=== PATIENT | female | born 1960 | race Caucasian/White ===

== ENCOUNTER 2019-03-21 01:51 | Observation (INO) | payer BC, SELFPAY ==
[2019-03-21] VITALS (7 sets, daily range): BP systolic 103–150; BP diastolic 58–90; PULSE 62–85; RESP 15–20; TEMP 36.7–37; O2SAT 95–98; BMI 25.4; BMI 25.7
--- NOTE | 2019-03-21 02:14 | CT_ITS ---
CT abdomen pelvis w con CLINICAL INDICATION: Right lower quadrant pain with nausea ITS.REASON: RLQ pain ORDERING PHYSICIAN: Baldomero Hunt MD PATIENT AGE: 58 years COMPARISON: None TECHNIQUE: Axial images obtained with sagittal and coronal reformats. All CT scans at the facility use one or more dose reduction, viz: automated exposure control, ma/kV adjustment per patient size (including targeted exams where dose is matched to indication, i.e. head), or iterative reconstruction technique. PROCEDURE: Oral Contrast: 75 mL's Optiray 350 IV Contrast: None . FINDINGS: Lower thorax: No acute finding Small area of decreased attenuation is present in the left hepatic lobe at the falciform ligament region and may be due to focal fatty infiltration measuring 2.6 cm. The spleen, adrenal glands, gallbladder, pancreas, and kidneys have an unremarkable appearance. Densely calcified lymph node is present in the right periaortic region in the upper abdomen. There are dilated thickened small bowel loops involving the ileum and distal jejunum. Small bowel loops measure up to 3 cm in width with mucosal thickening. The bowel loops somewhat changing caliber with less distention in the lower pelvic region in the mid to distal ileum. There remains some mild thickening distention of the ileum however to the ileocecal junction with small bowel feces sign within the distal segments of the ileum . The appendix is also slightly distended and fluid-filled measuring up to 8 mm in diameter. No periappendiceal stranding of the fat is evident. There is a small amount of generalized ascites. No pneumatosis or portal venous gas. There is mild thickening of the colon as well. No acute bony anomalies. IMPRESSION: 1. Diffuse small bowel dilatation as described above with mucosal thickening. The mid and distal ileum is not as distended as the proximal ileum and distal jejunum but there is small bowel wall thickening and small bowel feces sign in the distal ileum. A definite transition point is not identified although the small bowel does slightly change in caliber distally. A partial small bowel obstruction is considered. Diffuse enteritis is also a consideration. There is a small amount of ascites. No free air or portal venous gas. There is also some mild mucosal thickening of the colon which could indicate colitis. 2. Mildly distended fluid-filled appendix. This is of questioned clinical significance and follow-up is suggested.
[2019-03-21 02:27] LABS: Microscopic, Urine URINE MICROSCOPIC (MICROSCOPIC)
[2019-03-21 02:29] LABS: Basophils % 0.2 % (0.1-2.0); Eosinophils # 0.1 K/mm3 (0.0-0.4); Eosinophils % 0.8 % (0.1-12.0); Hematocrit 46.9 % (37.0-47.0); Lymphocytes # 1.4 K/mm3 (0.7-4.5); Lymphocytes % 18.3 % (10-50); Mean Corpuscular HGB Conc 34.1 g/dL (31.8-35.4); Mean Corpuscular Hemoglobin 29.5 pg (27.0-31.2); Mean Corpuscular Volume 86.6 fl (81-99); Mean Platelet Volume 7.1 fl (7.4-10.4); Monocytes # 0.6 K/mm3 (0.1-1.0); Monocytes % 7.5 % (1.7-9.3); Neutrophils # 5.7 K/mm3 (1.8-7.8); Neutrophils % 73.1 % (37.0-80.0); Platelet Count 239 K/mm3 (142-424); Red Blood Count 5.41 M/mm3 (4.20-5.40); Red Cell Distribution Width 12.7 % (11.5-17.5); White Blood Count 7.8 K/mm3 (4.8-10.8)
[2019-03-21 02:38] LABS: Alanine Aminotransferase 25 U/L (12-78); Albumin Level 3.8 gm/dL (3.4-5.0); Albumin/Globulin Ratio 1.1 (1.1-1.8); Alkaline Phosphatase 71 U/L (46-116); Amylase 72 U/L (25-115); Anion Gap 12.7 mEq/L (5-15); Aspartate Amino Transferase 14 U/L (15-37); Bilirubin,Total 0.5 mg/dL (0.2-1.0); Blood Urea Nitrogen 8 mg/dL (7-18); C-Reactive Protein 0.2 mg/L (0.0-0.9); Calcium 9.1 mg/dL (8.5-10.1); Carbon Dioxide 27 mmol/L (21.0-32.0); Chloride 102 mmol/L (98-107); Creatinine Clearance Estimated 78 mL/min (50-200); Creatinine,Serum 0.81 mg/dL (0.55-1.02); Estimated Glomerular Filt Rate 73 ml/min (>60); GFR (African American) 88 ML/MIN (>60); Globulin 3.4 gm/dl (1.3-3.2); Glucose 120 mg/dL (74-106); Lipase 189 u/L (73-393); Potassium 3.7 mmoL/L (3.5-5.1); Sodium 138 mmol/L (136-145); Total Protein,Serum 7.2 gm/dL (6.4-8.2)
[2019-03-21 02:45] LABS: Appearance,Urine CLEAR (Clear); Bilirubin,Urine Negative (Negative); Blood, Urine Negative (Negative); Color,Urine YELLOW (Yellow); Glucose,Urine (UA) Negative (Negative); Ketones,Urine Negative (Negative); Leukocyte Esterase,Urine 1+ (Negative); Nitrate,Urine Negative (Negative); PH,Urine 6.5 (5.0-8.5); Protein,Urine Negative (Negative); Urobilinogen,Urine 0.2 EU/dl (0.2)
[2019-03-21 03:00] LABS: Erythrocyte Sedimentation Rate 1 mm/hr (0-30)
[2019-03-21 03:02] LABS: Bacteria,Urine Trace /lpf
--- NOTE | 2019-03-21 04:12 | HMH.EDNVD ---
ED Disposition Clinical Impression: Small bowel obstruction Disposition: Admitted As Inpatient Condition on Discharge: Fair Instructions: DI for Acute Abdomen Referrals: Dilan Castillo [Primary Care Provider] - - Critical Care Critical Care Time: No Attestation: On 03/21/19, the high probability of a clinically significant, sudden or life threatening deterioration of the following system(s) required my full and direct attention, intervention and personal management. The time I documented below is in addition to time spent performing reported procedures but includes the following listed in this critical care notation. Medical Decision Making - Medical Records Medical records reviewed: Yes: I reviewed the patient's medical records. - Todd Inquiry Pt receiving controlled substance: No Vital Signs: 03/21/19 02:08 Temperature 98.0 F Temperature Source Oral Pulse Rate [Left] 85 Respiratory Rate 16 Blood Pressure [Left Arm] 150/90 H Blood Pressure Mean [Left Arm] 110 Blood Pressure Source [Left Arm] Automatic Cuff Blood Pressure Position [Left Arm] Supine 02 Sat by Pulse Oximetry 95 Oxygen Delivery Method Room Air - Lab Data Lab results reviewed: Yes: I reviewed the patient's lab results. Lab Results 03/21/19 02:07: Urine Color Yellow, Urine Appearance Clear, Urine pH 6.5, Ur Specific [place] 1.010, Urine Protein Negative, Urine Glucose (UA) Negative, Urine Ketones Negative, Urine Blood Negative, Urine Nitrate Negative, Urine Bilirubin Negative, Urine Urobilinogen 0.2, Ur Leukocyte Esterase 1+ A, Urine WBC 5-10, Ur Squamous Epith Cells 3-5, Urine Bacteria Trace 03/21/19 02:07: WBC 7.8, RBC 5.41 H, Hgb 16.0, Hct 46.9, MCV 86.6, MCH 29.5, MCHC 34.1, RDW 12.7, Plt Count 239, MPV 7.1 L, Neut % (Auto) 73.1, Lymph % (Auto) 18.3, [place] % (Auto) 7.5, Eos % (Auto) 0.8, Baso % (Auto) 0.2, Neut # (Auto) 5.7, Lymph # (Auto) 1.4, [place] # (Auto) 0.6, Eos # (Auto) 0.1, Baso # (Auto) 0.0, ESR 1 03/21/19 02:07: Sodium 138, Potassium 3.7, Chloride 102, Carbon Dioxide 27, Anion Gap 12.7, BUN 8, Creatinine 0.81, Estimated Creat Clear 78, Estimated GFR 73, Est GFR ( Amer) 88, Glucose 120 H, Calcium 9.1, Total Bilirubin 0.5, AST 14 L, ALT 25, Alkaline Phosphatase 71, C-Reactive Protein 0.2, Total Protein 7.2, Albumin 3.8, Globulin 3.4 H, Albumin/Globulin Ratio 1.1, Amylase 72, Lipase 189 Result diagrams: 03/21/19 02:07 03/21/19 02:07 Orders (Tests/Meds): ED MEDICATIONS Generic Name Dose Route Start Last Admin Trade Name Freq PRN Reason Stop Dose Admin Sodium Chloride 1,000 mls @ 999 mls/hr 03/21/19 02:30 03/21/19 02:19 Sod Chlor 0.9% 1000ml Bag IV 03/21/19 03:30 999 mls/hr .Q1H1M LAURYN Administration Discontinued Medications Generic Name Dose Route Start Last Admin Trade Name Freq PRN Reason Stop Dose Admin Ioversol 75 ml 03/21/19 04:07 03/21/19 04:08 Rad-Optiray 350 100ml Vial IV 03/21/19 04:08 75 ml ONCE ONE Administration Protocol Ketorolac Tromethamine 30 mg 03/21/19 02:16 03/21/19 02:19 Toradol 30mg/Ml Vial IV 03/21/19 02:17 30 mg ONCE ONE Administration Ondansetron HCl 4 mg 03/21/19 02:16 03/21/19 02:19 Zofran 4mg/2ml Vial IV 03/21/19 02:17 4 mg ONCE ONE Administration Sodium Chloride 10 ml 03/21/19 04:07 03/21/19 04:08 Rad-Saline Flush 10ml Syringe IV 03/21/19 04:08 10 ml ONCE ONE Administration ORDERS Category Date Time Status CT abdomen pelvis w con Stat Cat Scan 03/21/19 02:14 Taken Urine Culture Stat Micro 03/21/19 02:07 Received - CT Data CT Scan: Abdomen, Pelvis Time Received: 04:[address] Reviewed: Yes: I have viewed the radiologist's interpretation Preliminary Findings: Abnormal ( ) Nausea/Vomiting/Diarrhea HPI - General Chief complaint: Abdominal Pain Stated complaint: Pain in middle of stomach into back, nausea Time Seen by Provider: 03/21/19 02:15 Mode of Arrival: Ambulatory Source of Information: Patient
--- NOTE | 2019-03-21 04:16 | ED_ITS ---
ED Disposition Clinical Impression: Small bowel obstruction Disposition: Admitted As Inpatient Condition on Discharge: Fair Instructions: DI for Acute Abdomen Referrals: Dilan Castillo [Primary Care Provider] - - Critical Care Critical Care Time: No Attestation: On 03/21/19, the high probability of a clinically significant, sudden or life threatening deterioration of the following system(s) required my full and direct attention, intervention and personal management. The time I documented below is in addition to time spent performing reported procedures but includes the fo brigetteg listed in this critical care notation. Medical Decision Making - Medical Records Medical records reviewed: Yes: I reviewed the patient's medical records. - Todd Inquiry Pt receiving controlled substance: No Vital Signs: 03/21/19 02:08 Temperature 98.0 F Temperature Source Oral Pulse Rate [Left] 85 Respiratory Rate 16 Blood Pressure [Left Arm] 150/90 H Blood Pressure Mean [Left Arm] 110 Blood Pressure Source [Left Arm] Automatic Cuff Blood Pressure Position [Left Arm] Supine 02 Sat by Pulse Oximetry 95 Oxygen Delivery Method Room Air - Lab Data Lab results reviewed: Yes: I reviewed the patient's lab results. Lab Results 03/21/19 02:07: Urine Color Yellow, Urine Appearance Clear, Urine pH 6.5, Ur Specific [place] 1.010, Urine Protein Negative, Urine Glucose (UA) Negative, Urine Ketones Negative, Urine Blood Negative, Urine Nitrate Negative, Urine Bi lirubin Negative, Urine Urobilinogen 0.2, Ur Leukocyte Esterase 1+ A, Urine WBC 5-10, Ur Squamous Epith Cells 3-5, Urine Bacteria Trace 03/21/19 02:07: WBC 7.8, RBC 5.41 H, Hgb 16.0, Hct 46.9, MCV 86.6, MCH 29.5, MCHC 34.1, RDW 12.7, Plt Count 239, MPV 7.1 L, Neut % (Auto) 73.1, Lymph % (Auto) 18.3, [place] % (Auto) 7.5, Eos % (Auto) 0.8, Baso % (Auto) 0.2, Neut # (Auto) 5.7, Lymph # (Auto) 1.4, [place] # (Auto) 0.6, Eos # (Auto) 0.1, Baso # (Auto) 0.0, ESR 1 03/21/19 02:07: Sodium 138, Potassium 3.7, Chloride 102, Carbon Dioxide 27, Anion Gap 12.7, BUN 8, Creatinine 0.81, Estimated Creat Clear 78, Estimated GFR 73, Est GFR ( Amer) 88, Glucose 120 H, Calcium 9.1, Total Bilirubin 0.5, AST 14 L, ALT 25, Alkaline Phosphatase 71, C-Reactive Protein 0.2, Total Protein 7.2, Albumin 3.8, Globulin 3.4 H, Albumin/Globulin Ratio 1.1, Amylase 72, Lipase 189 Result diagrams: 03/21/19 02:07 03/21/19 02:07 Orders (Tests/Meds): ED MEDICATIONS Generic Name Dose Route Start Last Admin Trade Name Freq PRN Reason Stop Dose Admin Sodium Chloride 1,000 mls @ 999 mls/hr 03/21/19 02:30 03/21/19 02:19 Sod Chlor 0.9% 1000ml Bag IV 03/21/19 03:30 999 mls/hr .Q1H1M LAURYN Administration Discontinued Medications Generic Name Dose Route Start Last Admin Trade Name Freq PRN Reason Stop Dose Admin Ioversol 75 ml 03/21/19 04:07 03/21/19 04:08 Rad-Optiray 350 100ml Vial IV 03/21/19 04:08 75 ml ONCE ONE Administration Protocol Ketorolac Tromethamine 30 mg 03/21/19 02:16 03/21/19 02:19 Toradol 30mg/Ml Vial IV 03/21/19 02:17 30 mg ONCE ONE Administration Ondansetron HCl 4 mg 03/21/19 02:16 03/21/19 02:19 Z
--- NOTE | 2019-03-21 05:33 | PC.NURSE ---
LATE ENTRY; @ 0510 ARRIVED TO FLOOR, PER W/C/ FROM ED
--- NOTE | 2019-03-21 06:26 | PC.NURSE ---
DR HENLEY ARRIVED TO FLOOR. NOTIFIED OF CONSULT.
--- NOTE | 2019-03-21 06:38 | HMH.GSCON ---
*Admission Date: 03/21/19 *Chief complaint: Abdominal pain/nausea/vomiting *History of present illness: This is a 58-year-old female seen in consultation from Dr. Hunt after presenting overnight to the emergency department with increasing abdominal pain and nausea. No emesis. No melena. Evaluation in the emergency department included a CT scan that revealed changes consistent with possible enteritis versus partial small bowel obstruction. Surgical service was consulted for further evaluation. She states that she feels quite a bit better right now . Her last bowel movement was yesterday. She states that she passed flatus late yesterday . Please see HPI from emergency department evaluation forwarded below. - General Chief complaint: Abdominal Pain Stated complaint: Pain in middle of stomach into back, nausea Time Seen by Provider: 03/21/19 02:15 Mode of Arrival: Ambulatory Source of Information: Patient, Relative, Medical Record Limitations: No Limitations Description of Symptoms (Recalled from ER Triage Doc. by RN): Pt c/o RLQ abd pain w/ nausea - History of Present Illness HPI Narrative: upper abd pain which started tonight with nausea MD complaint: nausea, vomiting, abdominal pain Onset (ago): day(s) Associated Abdominal Pain: Yes Location of pain: periumbilical Severity: moderate Associated symptoms: denies other symptoms Review of Systems - Constitutional Denies body ache(s) - Eyes Denies change in vision - ENT Denies difficulty swallowing - *Cardiovascular Denies chest pain - *Respiratory Denies cough - *Gastrointestinal Reports abdominal pain, Reports nausea, Denies vomiting - *Genitourinary Denies abnormal vaginal bleeding - *Musculoskeletal Denies muscle weakness - Integumentary/Breasts Denies change in hair - *Neurologic Denies abnormal movements, Denies seizure-like activity - Psychiatric Denies anxiety - Endocrine Denies cold intolerance - Hematologic/Lymphatic Denies easy bleeding - Allergic/Immunologic Denies GI upset with certain foods [facility] History Medical History: Denies:: Cancer, Diabetes Mellitus Type 1, Diabetes Mellitus Type 2, MRSA *Have you ever received a pneumonia vaccine?: No *Have you received a flu vaccine this season?: No Other Surgeries: Yes: , Other (Tonsillectomy.) Amputation: No Fractures: No - *Social History Educational Level: Completed College Alcohol Intake: never *Occupational Status:: employed *Travel in the last 8 weeks: None - Psychiatric History Expresses thoughts of harming self/others: None Suicide Plan Description: No Plan Family Hx:: Anemia, Cancer, Coronary Artery Disease, Diabetes, Heart Attack, Hypertension, Stroke Meds Home Medications Medication Instructions Recorded Confirmed Type No Known Home Medications 03/21/19 03/21/19 History Allergies Allergy/AdvReac Type Severity Reaction Status Date / Time NO KNOWN ALLERGIES Allergy Uncoded 10/09/17 15:07 Exam Vital signs and Labs for Last 24 Hours: Temp Pulse Resp BP Pulse Ox 98.2 F 74 17 121/78 97 03/21/19 05:10 03/21/19 05:10 03/21/19 05:10 03/21/19 05:10 03/21/19 05:10 Laboratory Results - last 24 hr 03/21/19 02:07: Urine Color Yellow, Urine Appearance Clear, Urine pH 6.5, Ur Specific [place] 1.010, Urine Protein Negative, Urine Glucose (UA) Negative, Urine Ketones Negative, Urine Blood Negative, Urine Nitrate Negative, Urine Bilirubin Negative, Urine Urobilinogen 0.2, Ur Leukocyte Esterase 1+ A, Urine WBC 5-10, Ur Squamous Epith Cells 3-5, Urine Bacteria Trace 03/21/19 02:07: WBC 7.8, RBC 5.41 H, Hgb 16.0, Hct 46.9, MCV 86.6, MCH 29.5, MCHC 34.1, RDW 12.7, Plt Count 239, MPV 7.1 L, Neut % (Auto) 73.1, Lymph % (Auto) 18.3, [place] % (Auto) 7.5, Eos % (Auto) 0.8, Baso % (Auto) 0.2, Neut # (Auto) 5.7, Lymph # (Auto) 1.4, [place] # (Auto) 0.6, Eos # (Auto) 0.1, Baso # (Auto) 0.0, ESR 1 03/21/19 02:07: Sodium 138, Potassium 3.7, C
--- NOTE | 2019-03-21 06:44 | PC.NURSE ---
REPORT WILL BE GIVEN TO Samantha ESCOBAR
--- NOTE | 2019-03-21 07:08 | HMH.HP ---
*Admission Date: 03/21/19 *Chief complaint: abdominal pain, nausea *History of present illness: Ms. Briceño is a 58-year-old female who presents with worsening abdominal pain and nausea for the past 2 to 3 days. States the pain got so bad she was unable to tolerate any p.o. intake. Came to the emergency room for further management. On presentation imaging of her abdomen was done found to have concerning findings for small bowel obstruction. Labs were obtained which were unremarkable. Surgery consulted due to small bowel obstruction. Denies emesis, melenic stool, bilious vomiting, fever, syncope. Normal urine output. Evaluation by surgery with recommendations for imaging consisting of barium swallow with small bowel follow-through. Patient otherwise stable on room air at this time [facility] History I have reviewed the patient's past medical history: Yes Medical History: Denies:: Cancer, Diabetes Mellitus Type 1, Diabetes Mellitus Type 2, MRSA *Have you ever received a pneumonia vaccine?: No *Have you received a flu vaccine this season?: No Other Surgeries: Yes: , Other (Tonsillectomy.) Amputation: No Fractures: No - *Social History Educational Level: Completed College Alcohol Intake: never *Occupational Status:: employed *Travel in the last 8 weeks: None - Psychiatric History Expresses thoughts of harming self/others: None Suicide Plan Description: No Plan Family Hx:: Anemia, Cancer, Coronary Artery Disease, Diabetes, Heart Attack, Hypertension, Stroke Review of Systems - Review of Systems Review of systems:: pertinent systems reviewed and negative unless documented below - *Neurologic Denies abnormal movements, Denies seizure-like activity Meds Home Medications Medication Instructions Recorded Confirmed Type No Known Home Medications 03/21/19 03/21/19 History Allergies Allergy/AdvReac Type Severity Reaction Status Date / Time NO KNOWN ALLERGIES Allergy Uncoded 10/09/17 15:07 Exam Vital signs and Labs for Last 24 Hours: Temp Pulse Resp BP Pulse Ox 98.2 F 74 17 121/78 97 03/21/19 05:10 03/21/19 05:10 03/21/19 05:10 03/21/19 05:10 03/21/19 05:10 Laboratory Results - last 24 hr 03/21/19 02:07: Urine Color Yellow, Urine Appearance Clear, Urine pH 6.5, Ur Specific [place] 1.010, Urine Protein Negative, Urine Glucose (UA) Negative, Urine Ketones Negative, Urine Blood Negative, Urine Nitrate Negative, Urine Bilirubin Negative, Urine Urobilinogen 0.2, Ur Leukocyte Esterase 1+ A, Urine WBC 5-10, Ur Squamous Epith Cells 3-5, Urine Bacteria Trace 03/21/19 02:07: WBC 7.8, RBC 5.41 H, Hgb 16.0, Hct 46.9, MCV 86.6, MCH 29.5, MCHC 34.1, RDW 12.7, Plt Count 239, MPV 7.1 L, Neut % (Auto) 73.1, Lymph % (Auto) 18.3, [place] % (Auto) 7.5, Eos % (Auto) 0.8, Baso % (Auto) 0.2, Neut # (Auto) 5.7, Lymph # (Auto) 1.4, [place] # (Auto) 0.6, Eos # (Auto) 0.1, Baso # (Auto) 0.0, ESR 1 03/21/19 02:07: Sodium 138, Potassium 3.7, Chloride 102, Carbon Dioxide 27, Anion Gap 12.7, BUN 8, Creatinine 0.81, Estimated Creat Clear 78, Estimated GFR 73, Est GFR ( Amer) 88, Glucose 120 H, Calcium 9.1, Total Bilirubin 0.5, AST 14 L, ALT 25, Alkaline Phosphatase 71, C-Reactive Protein 0.2, Total Protein 7.2, Albumin 3.8, Globulin 3.4 H, Albumin/Globulin Ratio 1.1, Amylase 72, Lipase 189 I & O for Last 24 hours: Intake & Output 03/18/19 03/19/19 03/20/19 03/21/19 23:59 23:59 23:59 23:59 Weight 65.998 kg Narrative: Normal body habitus, no acute distress on room air. Regular rate and rhythm, no murmurs Lungs clear to auscultation no wheeze or rhonchi Abdomen nondistended, tender in epigastrium, bowel sounds normal Alert and oriented to person place and time, no focal neurologic deficits No peripheral edema, pulses 2+ Assessment and Plan (1) Abdominal pain Current visit: Yes Status: Acute Category: Medical Code(s): R10.9 - Unspecified abdominal pain (2) Nausea Current visit: Yes Status:
--- NOTE | 2019-03-21 07:40 | P.CONPHA_ITS ---
[facility] Pharmacy VTE Monitoring - Patient Demographics Admission date: 03/21/19 Report Date: 03/21/19 Time: 07:40 Allergies/Adverse Reactions: Patient Allergies NO KNOWN ALLERGIES Allergy (Uncoded 10/09/17 15:07) Height: 1.6 m Weight: 65.998 kg Patient Problems: Current Active Problems (Updated 03/21/19 @ 06:47 by Darrell Mosqueda MD) Small bowel obstruction (Acute) Abdominal pain (Acute) Nausea (Acute) - VTE Risk Labs: VTE Related Lab Results Hgb 16.0 g/dL (12.2-16.2) 03/21/19 02:07 Hct 46.9 % (37.0-47.0) 03/21/19 02:07 Plt Count 239 K/mm3 (142-424) 03/21/19 02:07 BUN 8 mg/dL (7-18) 03/21/19 02:07 Creatinine 0.81 mg/dL (0.55-1.02) 03/21/19 02:07 Estimated Creat Clear 78 mL/min (50-200) 03/21/19 02:07 Was VTE Risk Assessment Performed: Yes VTE Score: 1 VTE Risk Level: Very Low Risk - Prophylaxis VTE Prophylaxis Ordered?: Yes Types of VTE Prophylaxis: TEDS Knee High Location of Applied Device: Bilateral Lower Extremeties - VTE Diagnosis Confirmed Treatment or plan recommended: Continue Current Treatment
--- NOTE | 2019-03-21 09:26 | HMH.PHAINT ---
MEDICATION RECONCILIATION COMPLETED ON PATIENT. -JOE RICHEY, JLUISD
--- NOTE | 2019-03-21 17:00 | PC.NURSE ---
COURTESY ROUND DONE AT THIS TIME. NO NEEDS VOICED.
--- NOTE | 2019-03-21 19:11 | PC.NURSE ---
report given to clarissa
--- NOTE | 2019-03-21 21:31 | PC.NURSE ---
Received call from Jerri in Rad that Dr. Diana requests pt to go down again @ 2300 for another X-Ray. Notified pt of this.
--- NOTE | 2019-03-22 03:16 | PC.NURSE ---
Rested at intervals this shift. No c/o pain voiced. Remains on room air. Ambulates independently to bathroom w/ no safety concerns. Refuses TEDS. #20 RAC w/ NS @ 100 mls/hr. VSS. Will continue to monitor.
[2019-03-22 04:00] VITALS: BP 100/61; PULSE 67; RESP 18; TEMP 37; O2SAT 97
[2019-03-22 05:15] VITALS: BMI 26.2
--- NOTE | 2019-03-22 06:00 | XR_ITS ---
XR acute abdomen series HISTORY: ITS.REASON: SBO vs. enteritis ORDERING PHYSICIAN: Baldomero Hunt MD PATIENT AGE: 58 years COMPARISON: None TECHNIQUE: Upright view of the chest is performed along with upright and supine views of the abdomen and pelvis. FINDINGS: An upright view of the chest shows no acute cardiac or pulmonary pathology. The lungs are clear. Upright and supine views of the abdomen show residual contrast within the large and small bowel. Contrast is mostly in the large bowel. Some of the small bowel loops in the lower pelvic region to show some mild mucosal thickening and shagginess consistent with enteritis. The terminal ileum has an unremarkable appearance. No free air evident. IMPRESSION: 1. No evidence of small bowel obstruction. Enteritis is considered. 2. Unremarkable chest x-ray
[2019-03-22 06:46] LABS: Basophils % 0.3 % (0.1-2.0); Eosinophils # 0.1 K/mm3 (0.0-0.4); Eosinophils % 1.7 % (0.1-12.0); Hematocrit 41.9 % (37.0-47.0); Hemoglobin 13.7 g/dL (12.2-16.2); Lymphocytes # 0.9 K/mm3 (0.7-4.5); Lymphocytes % 21.6 % (10-50); Mean Corpuscular HGB Conc 32.8 g/dL (31.8-35.4); Mean Corpuscular Hemoglobin 28.8 pg (27.0-31.2); Mean Corpuscular Volume 87.9 fl (81-99); Mean Platelet Volume 7.2 fl (7.4-10.4); Monocytes # 0.4 K/mm3 (0.1-1.0); Monocytes % 8.6 % (1.7-9.3); Neutrophils # 2.8 K/mm3 (1.8-7.8); Neutrophils % 67.9 % (37.0-80.0); Platelet Count 190 K/mm3 (142-424); Red Blood Count 4.76 M/mm3 (4.20-5.40); Red Cell Distribution Width 12.7 % (11.5-17.5); White Blood Count 4.1 K/mm3 (4.8-10.8)
[2019-03-22 06:59] LABS: Alanine Aminotransferase 18 U/L (12-78); Albumin Level 2.6 gm/dL (3.4-5.0); Alkaline Phosphatase 53 U/L (46-116); Anion Gap 10.2 mEq/L (5-15); Aspartate Amino Transferase 12 U/L (15-37); Bilirubin,Total 0.6 mg/dL (0.2-1.0); Blood Urea Nitrogen 11 mg/dL (7-18); Carbon Dioxide 27 mmol/L (21.0-32.0); Chloride 109 mmol/L (98-107); Creatinine Clearance Estimated 82 mL/min (50-200); Creatinine,Serum 0.79 mg/dL (0.55-1.02); Estimated Glomerular Filt Rate 75 ml/min (>60); GFR (African American) 90 ML/MIN (>60); Globulin 2.7 gm/dl (1.3-3.2); Glucose 79 mg/dL (74-106); Potassium 4.2 mmoL/L (3.5-5.1); Sodium 142 mmol/L (136-145); Total Protein,Serum 5.3 gm/dL (6.4-8.2)
[2019-03-22 07:32] LABS: Calcium 7.9 mg/dL (8.5-10.1)
--- NOTE | 2019-03-22 07:51 | HMH.GSPN ---
Subjective Patient reports: no new complaints (some pain yesterday...a bit better now ), flatus Exam Vital signs and Labs for Last 24 Hours: Temp Pulse Resp BP Pulse Ox 98.6 F 67 18 100/61 L 97 03/22/19 04:00 03/22/19 04:00 03/22/19 04:00 03/22/19 04:00 03/22/19 04:00 Laboratory Results - last 24 hr 03/22/19 06:09: WBC 4.1 L D, RBC 4.76, Hgb 13.7, Hct 41.9, MCV 87.9, MCH 28.8, MCHC 32.8, RDW 12.7, Plt Count 190, MPV 7.2 L, Neut % (Auto) 67.9, Lymph % (Auto) 21.6, [place] % (Auto) 8.6, Eos % (Auto) 1.7, Baso % (Auto) 0.3, Neut # (Auto) 2.8, Lymph # (Auto) 0.9, [place] # (Auto) 0.4, Eos # (Auto) 0.1, Baso # (Auto) 0.0 03/22/19 06:09: Sodium 142, Potassium 4.2, Chloride 109 H, Carbon Dioxide 27, Anion Gap 10.2, BUN 11 D, Creatinine 0.79, Estimated Creat Clear 82, Estimated GFR 75, Est GFR ( Amer) 90, Glucose 79, Calcium 7.9 L D, Total Bilirubin 0.6, AST 12 L, ALT 18 D, Alkaline Phosphatase 53, Total Protein 5.3 L D, Albumin 2.6 L D, Globulin 2.7, Albumin/Globulin Ratio 1.0 L I & O for Last 24 hours: Intake & Output 03/19/19 03/20/19 03/21/19 03/22/19 11:59 11:59 11:59 11:59 Intake Total 1009 / 1009 Output Total 310 / 310 Balance 699 / 699 Weight 145 lb 8 oz 148 lb 2 oz Microbiology Reports for the Last 24 Hours: Microbiology 03/21/19 02:07 Urine,Clean Catch Urine Culture - Final Multiple organisms, suggests contamination. - Constitutional no acute distress - *Routine Respiratory Exam Absent: respiratory distress - *Routine Cardiovascular Exam Present: RRR - *Routine Abdominal Exam Present: soft Progress Note: A&P (1) Abdominal pain Status: Acute Assessment and plan: likely due to enteritis...no evidence of obstruction on small bowel series. Current Visit: Yes (2) Nausea Status: Acute Current Visit: Yes (3) Enteritis Status: Acute Assessment and plan: treatment as per primary service Current Visit: Yes
--- NOTE | 2019-03-22 07:58 | HMH.DCSUM ---
General - General Admission date:: 03/21/19 Discharge date: 03/22/19 HPI HPI: Ms. Briceño is a 58-year-old female who presents with worsening abdominal pain and nausea for the past 2 to 3 days. States the pain got so bad she was unable to tolerate any p.o. intake. Came to the emergency room for further management. On presentation imaging of her abdomen was done found to have concerning findings for small bowel obstruction. Labs were obtained which were unremarkable. Surgery consulted due to small bowel obstruction. Denies emesis, melenic stool, bilious vomiting, fever, syncope. Normal urine output. Evaluation by surgery with recommendations for imaging consisting of barium swallow with small bowel follow-through. Patient otherwise stable on room air at this time Hospital Course Hospital Course: Patient was admitted, made n.p.o. with bowel rest IV fluids. [place] better over the next 24 hours, imaging studies showed no evidence of actual obstruction but evidence of significant enteritis. She did improve with bowel rest and was able to tolerate clear liquids this morning. Abdominal exam improved this morning and she felt good, no issues with diarrhea or vomiting and no pain. Plan will be to discharge home. We will treat enteritis with proton pump inhibitor and Flagyl, she will see her regular physician in the next 48 hours for GI referral. Objective Vital signs: Temp Pulse Resp BP Pulse Ox 98.6 F 67 18 100/61 L 97 03/22/19 04:00 03/22/19 04:00 03/22/19 04:00 03/22/19 04:00 03/22/19 04:00 Narrative: Pleasant, alert, oriented x3, no rash, oropharynx clear. Heart rate regular. Lungs clear. Abdomen soft, minimal tenderness in the lower quadrants but vastly improved. Normal bowel sounds. No masses or guarding. No edema or clubbing. Results Labs on day of discharge: Labs from last 24 hours 03/22/19 03/22/19 06:09 06:09 WBC 4.1 L D RBC 4.76 Hgb 13.7 Hct 41.9 MCV 87.9 MCH 28.8 MCHC 32.8 RDW 12.7 Plt Count 190 MPV 7.2 L Neut % (Auto) 67.9 Lymph % (Auto) 21.6 [place] % (Auto) 8.6 Eos % (Auto) 1.7 Baso % (Auto) 0.3 Neut # (Auto) 2.8 Lymph # (Auto) 0.9 [place] # (Auto) 0.4 Eos # (Auto) 0.1 Baso # (Auto) 0.0 Sodium 142 Potassium 4.2 Chloride 109 H Carbon Dioxide 27 Anion Gap 10.2 BUN 11 D Creatinine 0.79 Estimated Creat Clear 82 Estimated GFR 75 Est GFR ( Amer) 90 Glucose 79 Calcium 7.9 L D Total Bilirubin 0.6 AST 12 L ALT 18 D Alkaline Phosphatase 53 Total Protein 5.3 L D Albumin 2.6 L D Globulin 2.7 Albumin/Globulin Ratio 1.0 L DS: Diagnosis - Discharge Diagnosis (1) Abdominal pain Status: Resolved (2) Nausea Status: Resolved (3) Enteritis Status: Acute Discharge Plan - Patient Discharge Instructions ACTIVITY: Continue current activity DIET: other (clear liquids for 24 hours, then advance) Patient Instructions: DI for Small Bowel Obstruction - Follow up Plan Follow up with: Dilan Castillo [Primary Care Provider] - 2 days Disposition: Home, Self-Group Home Medications: Home Medications Medication Instructions Recorded Confirmed Type No Known Home Medications 03/21/19 03/21/19 History Pantoprazole Sodium [Protonix 40mg 40 mg PO DAILY 30 Days #30 tab 03/22/19 Rx tablet] metroNIDAZOLE [Flagyl 500mg 500 mg PO Q8H #21 tab 03/22/19 Rx Tablet] Prescriptions/Medication Reconciliation: New metroNIDAZOLE [Flagyl 500mg Tablet] 500 mg PO Q8H #21 tab Pantoprazole Sodium [Protonix 40mg tablet] 40 mg PO DAILY 30 Days #30 tab No Action No Known Home Medications
[2019-03-22 08:00] VITALS: BP 100/60; PULSE 79; RESP 16; TEMP 36.8; O2SAT 97
--- NOTE | 2019-03-22 08:02 | P.DS_ITS ---
General - General Admission date:: 03/21/19 Discharge date: 03/22/19 HPI HPI: Ms. Briceño is a 58-year-old female who presents with worsening abdominal pain and nausea for the past 2 to 3 days. States the pain got so bad she was unable to tolerate any p.o. intake. Came to the emergency room for further management. On presentation imaging of her abdomen was done found to have concerning findings for small bowel obstruction. Labs were obtained which were unremarkable. Surgery consulted due to small bowel obstruction. Denies emesis, melenic stool, bilious vomiting, fever, syncope. Normal urine output. Evaluation by surgery with recommendations for imaging consisting of barium swallow with small bowel follow-through. Patient otherwise stable on room air at this time Hospital Course Hospital Course: Patient was admitted, made n.p.o. with bowel rest IV fluids. [place] better over the next 24 hours, imaging studies showed no evidence of actual obstruction but evidence of significant enteritis. She did improve with bowel rest and was able to tolerate clear liquids this morning. Abdominal exam improved this morning and she felt good, no issues with diarrhea or vomiting and no pain. Plan will be to discharge home. We will treat enteritis with proton pump inhibitor and Flagyl, she will see her regular physician in the next 48 hours for GI referral. Objective Vital signs: Temp Pulse Resp BP Pulse Ox 98.6 F 67 18 100/61 L 97 03/22/19 04:00 03/22/19 04:00 03/22/19 04:00 03/22/19 04:00 03/22/19 04:00 Narrative: Pleasant, alert, oriented x3, no rash, oropharynx clear. Heart rate regular. Lungs clear. Abdomen soft, minimal tenderness in the lower quadrants but vastly improved. Normal bowel sounds. No masses or guarding. No edema or clubbing. Results Labs on day of discharge: Labs from last 24 hours 03/22/19 03/22/19 06:09 06:09 WBC 4.1 L D RBC 4.76 Hgb 13.7 Hct 41.9 MCV 87.9 MCH 28.8 MCHC 32.8 RDW 12.7 Plt Count 190 MPV 7.2 L Neut % (Auto) 67.9 Lymph % (Auto) 21.6 [place] % (Auto) 8.6 Eos % (Auto) 1.7 Baso % (Auto) 0.3 Neut # (Auto) 2.8 Lymph # (Auto) 0.9 [place] # (Auto) 0.4 Eos # (Auto) 0.1 Baso # (Auto) 0.0 Sodium 142 Potassium 4.2 Chloride 109 H Carbon Dioxide 27 Anion Gap 10.2 BUN 11 D Creatinine 0.79 Estimated Creat Clear 82 Estimated GFR 75 Est GFR ( Amer) 90 Glucose 79 Calcium 7.9 L D Total Bilirubin 0.6 AST 12 L ALT 18 D Alkaline Phosphatase 53 Total Protein 5.3 L D Albumin 2.6 L D Globulin 2.7 Albumin/Globulin Ratio 1.0 L DS: Diagnosis - Discharge Diagnosis (1) Abdominal pain Status: Resolved (2) Nausea Status: Resolved (3) Enteritis Status: Acute Discharge Plan - Patient Discharge Instructions ACTIVITY: Continue current activity DIET: other (clear liquids for 24 hours, then advance) Patient Instructions: DI for Small Bowel Obstruction - Follow
--- NOTE | 2019-03-22 08:21 | PC.NURSE ---
NURSE TOOK BP MANUAL
[2019-03-22 08:30] VITALS: O2SAT 97
--- NOTE | 2019-03-22 11:50 | PC.NURSE ---
PATIENT A&O X4, LUNGS CLEAR, PULSES EQUAL, MOSAIC TILER EQUAL, PATIENT AMBULATED IN HALLWAY, STEADY GAIT, RN PROVIDED D/C INSTRUCTIONS FOR BOWEL OBSTRUCTION AND NEW MEDICATIONS. PATIENT VERBALIZED AN UNDERSTANDING. NO OTHER NEEDS AT THIS TIME.
== END 2019-03-22 10:45 | disposition home or self-care (01) ==
LOC: ER 02:04 → 2ND 04:34
PROVIDERS: Internal Medicine Adolescent Medicine; Admitting Provider Internal Medicine Adolescent Medicine; Emergency Provider Emergency Medicine; PCP Internal Medicine; Visit Provider Internal Medicine Adolescent Medicine
DX: K52.9 Noninfective gastroenteritis and colitis, unspecified
CPT/HCPCS: 36415; 74021; 74177; 80053; 81001; 82150; 83690; 85025; 85651; 86140; 87086; 96365; 96367; 96375; 96376; 99284; G0378; J2405; Q9967

== ENCOUNTER → 2021-05-23 07:56 | Outpatient (CLI) | payer BC, SELFPAY ==
--- NOTE | 2021-05-23 08:03 | US_ITS ---
PROCEDURE: US ABDOMEN LIMITED CLINICAL INDICATION: RUQ PAIN, NAUSEA COMPARISON: No exams were available for comparison FINDINGS: PANCREAS: Unremarkable. No obvious mass or abnormal fluid collection. No ductal dilatation LIVER: No focal liver lesions demonstrated. Homogeneous echogenicity. No intrahepatic biliary ductal dilatation evident. There is appropriate direction of blood flow within a non dilated portal vein RIGHT KIDNEY: Unremarkable. Normal size and echogenicity. No hydronephrosis GALLBLADDER: There is a small amount of sludge in the gallbladder. No gallstones, gallbladder wall thickening, pericholecystic fluid, or biliary dilatation is evident. IMPRESSION: No gallstones or cholecystitis apparent. Dictated by: Jayme Diana MD 05/23/2021 13:47 Jayme Diana MD in [place] 05/23/2021 13:47
== END ==
PROVIDERS: PCP Internal Medicine; Visit Provider Internal Medicine
DX: R10.11 Right upper quadrant pain (principal); R11.0 Nausea
CPT/HCPCS: 76705

== ENCOUNTER → 2021-12-12 14:21 | Outpatient (CLI) | payer BC, SELFPAY ==
[2021-12-12 18:12] LABS: Alanine Aminotransferase 27 U/L (12-78); Albumin Level 4.2 g/dl (3.5-5.0); Albumin/Globulin Ratio 1.9 (1.1-1.8); Alkaline Phosphatase 55 U/L (38-126); Anion Gap 12.5 mEq/L (5-15); Aspartate Amino Transferase 35 U/L (14-36); Bilirubin,Total 0.5 mg/dl (0.2-1.3); Blood Urea Nitrogen 14 mg/dl (7-17); Calcium 8.6 mg/dl (8.4-10.2); Carbon Dioxide 26 mmol/L (22.0-30.0); Chloride 104 mmol/L (98-107); Chol/HDL Ratio 3.6 (1-3.5); Cholesterol 225 mg/dl (140-200); Estimated Glomerular Filt Rate 85 ml/min (>60); GFR (African American) 103 ML/MIN (>60); Globulin 2.2 g/dL (1.3-3.2); Glucose 71 mg/dl (74-100); HDL Cholesterol 62 mg/dl (40-60); Potassium 4.5 mmoL/L (3.5-5.1); Sodium 138 mmol/L (136-145); Total Protein,Serum 6.4 g/dl (6.3-8.2); Triglycerides 72 mg/dl (30-150); VLDL Cholesterol 14 mg/dL (0-40)
[2021-12-12 18:24] LABS: Direct LDL Cholesterol 127.53 mg/dL (100-129)
== END ==
PROVIDERS: Visit Provider Internal Medicine
DX: E78.5 Hyperlipidemia, unspecified (principal); K21.9 Gastro-esophageal reflux disease without esophagitis
CPT/HCPCS: 80053; 80061

== ENCOUNTER → 2022-01-30 13:38 | Outpatient (CLI) | payer BC, SELFPAY ==
--- NOTE | 2022-01-30 13:47 | XR_ITS ---
FINAL REPORT CLINICAL HISTORY: TENDONITIS OF RIGHT SHOULDER COMPARISON: June 15, 2020 FINDINGS: RIGHT SHOULDER Three views demonstrate no acute fracture or dislocation. The visualized joint spaces are normally aligned. The soft tissues are unremarkable. IMPRESSION: No acute process. Reviewed, Interpreted and Dictated by Levar Flores MD Transcribed by Nydia Ramirez Authenticated by Levar Flores MD on 01/30/2022 04:17:[address] [facility] [place]
== END ==
PROVIDERS: PCP Internal Medicine; Visit Provider Internal Medicine
DX: M75.81 Other shoulder lesions, right shoulder (principal)
CPT/HCPCS: 73030

== ENCOUNTER 2022-10-06 14:00 | Outpatient (RCR) | payer BC, SELFPAY | END 2022-10-06 14:05 | disposition home or self-care (01) | LOC: OT 14:00 | PROVIDERS: PCP Internal Medicine; Visit Provider Physician Assistant | DX: S46.011A Strain of muscle(s) and tendon(s) of the rotator cuff of right shoulder, initial encounter (principal) | CPT/HCPCS: 97010; 97014; 97110; 97140; 97164; 97165; 97530; G0283 ==

== ENCOUNTER → 2023-01-15 10:16 | Outpatient (CLI) | payer BC, SELFPAY ==
[2023-01-15 10:44] LABS: Basophils % 0.9 % (0.1-2.0); Eosinophils # 0.1 K/mm3 (0.0-0.4); Eosinophils % 2.1 % (0.1-12.0); Hematocrit 44.8 % (37.0-47.0); Hemoglobin 14.6 g/dL (12.2-16.2); Lymphocytes # 1.3 K/mm3 (0.7-4.5); Lymphocytes % 31.2 % (10-50); Mean Corpuscular HGB Conc 32.5 g/dL (31.8-35.4); Mean Corpuscular Hemoglobin 29.2 pg (27.0-31.2); Mean Corpuscular Volume 89.8 fl (81-99); Mean Platelet Volume 7.9 fl (7.4-10.4); Monocytes # 0.3 K/mm3 (0.1-1.0); Monocytes % 6.3 % (1.7-9.3); Neutrophils # 2.5 K/mm3 (1.8-7.8); Neutrophils % 59.5 % (37.0-80.0); Platelet Count 248 K/mm3 (142-424); Red Blood Count 4.99 M/mm3 (4.20-5.40); White Blood Count 4.2 K/mm3 (4.8-10.8)
[2023-01-15 11:23] LABS: Alanine Aminotransferase 19 U/L (12-78); Albumin Level 3.9 g/dl (3.5-5.0); Albumin/Globulin Ratio 1.6 (1.1-1.8); Anion Gap 9.2 mEq/L (5-15); Aspartate Amino Transferase 25 U/L (14-36); Bilirubin,Total 0.4 mg/dl (0.2-1.3); Blood Urea Nitrogen 14 mg/dl (7-17); Calcium 8.7 mg/dl (8.4-10.2); Carbon Dioxide 30 mmol/L (22.0-30.0); Chloride 103 mmol/L (98-107); Cholesterol 213 mg/dl (140-200); Estimated Glomerular Filt Rate 73 ml/min (>60); GFR (African American) 88 ML/MIN (>60); Globulin 2.5 g/dL (1.3-3.2); Glucose 82 mg/dl (74-100); HDL Cholesterol 53 mg/dl (40-60); Potassium 5.2 mmoL/L (3.5-5.1); Sodium 137 mmol/L (136-145); Total Protein,Serum 6.4 g/dl (6.3-8.2); Triglycerides 77 mg/dl (30-150); VLDL Cholesterol 15 mg/dL (0-40)
[2023-01-15 11:24] LABS: Alkaline Phosphatase 62 U/L (38-126)
[2023-01-15 11:34] LABS: Direct LDL Cholesterol 120.21 mg/dL (100-129)
== END ==
LOC: LAB.DROPOF 10:16
PROVIDERS: PCP Internal Medicine; Visit Provider Internal Medicine
DX: E78.5 Hyperlipidemia, unspecified (principal); K21.9 Gastro-esophageal reflux disease without esophagitis
CPT/HCPCS: 80053; 80061; 85025

== ENCOUNTER 2024-01-28 15:20 | Outpatient (CLI) | payer BC, SELFPAY ==
[2024-01-28 16:02] LABS: Eosinophils # 0.1 K/mm3 (0.0-0.4); Eosinophils % 2.1 % (0.1-12.0); Hematocrit 44.8 % (37.0-47.0); Hemoglobin 14.5 g/dL (12.2-16.2); Lymphocytes # 1.2 K/mm3 (0.7-4.5); Lymphocytes % 25.5 % (10-50); Mean Corpuscular HGB Conc 32.5 g/dL (31.8-35.4); Mean Corpuscular Hemoglobin 30.4 pg (27.0-31.2); Mean Corpuscular Volume 93.5 fl (81-99); Mean Platelet Volume 9.1 fl (7.4-10.4); Monocytes # 0.4 K/mm3 (0.1-1.0); Monocytes % 8.6 % (1.7-9.3); Neutrophils # 2.9 K/mm3 (1.8-7.8); Neutrophils % 62.9 % (37.0-80.0); Platelet Count 249 K/mm3 (142-424); Red Blood Count 4.79 M/mm3 (4.20-5.40); Red Cell Distribution Width 13.8 % (11.5-17.5); White Blood Count 4.7 K/mm3 (4.8-10.8)
[2024-01-28 16:31] LABS: Alanine Aminotransferase 19 U/L (12-78); Albumin/Globulin Ratio 1.7 (1.1-1.8); Alkaline Phosphatase 66 U/L (38-126); Anion Gap 9.3 mEq/L (5-15); Aspartate Amino Transferase 27 U/L (14-36); Bilirubin,Total 0.4 mg/dl (0.2-1.3); Blood Urea Nitrogen 12 mg/dl (7-17); Calcium 9.4 mg/dl (8.4-10.2); Carbon Dioxide 27 mmol/L (22.0-30.0); Chloride 106 mmol/L (98-107); Chol/HDL Ratio 4.2 (1-3.5); Cholesterol 235 mg/dl (140-200); Estimated Glomerular Filt Rate 72 ml/min (>60); GFR (African American) 88 ML/MIN (>60); Globulin 2.4 g/dL (1.3-3.2); Glucose 76 mg/dl (74-100); HDL Cholesterol 56 mg/dl (40-60); Potassium 4.3 mmoL/L (3.5-5.1); Sodium 138 mmol/L (136-145); Total Protein,Serum 6.4 g/dl (6.3-8.2); Triglycerides 59 mg/dl (30-150); VLDL Cholesterol 12 mg/dL (0-40)
== END 2024-01-28 23:59 ==
LOC: LAB.DROPOF 15:20
PROVIDERS: PCP Internal Medicine; Visit Provider Internal Medicine
DX: E78.5 Hyperlipidemia, unspecified (principal); K21.9 Gastro-esophageal reflux disease without esophagitis; L23.9 Allergic contact dermatitis, unspecified cause; K59.00 Constipation, unspecified
CPT/HCPCS: 80053; 80061; 85025

== ENCOUNTER 2025-07-20 11:05 | Outpatient (CLI) | payer BC, SELFPAY ==
[2025-07-20 15:06] LABS: Hematocrit 42.0 % (37.0-47.0); Hemoglobin 14.3 g/dL (12.2-16.2); Immature Granulocytes % 0 %; Mean Corpuscular HGB Conc 34.0 g/dL (31.8-35.4); Mean Corpuscular Hemoglobin 30.2 pg (27.0-31.2); Mean Corpuscular Volume 88.8 fl (81-99); Nucleated Red Blood Cells % 0 %; Platelet Count 229 K/mm3 (142-424); Red Blood Count 4.73 M/mm3 (4.20-5.40); Red Cell Distribution Width-SD 41.4 fL; White Blood Count 3.6 K/mm3 (4.8-10.8)
[2025-07-20 16:57] LABS: Alanine Aminotransferase 18 U/L (12-78); Albumin Level 4.0 g/dl (3.5-5.0); Albumin/Globulin Ratio 1.5 (1.1-1.8); Alkaline Phosphatase 60 U/L (38-126); Anion Gap 13.8 mEq/L (5-15); Aspartate Amino Transferase 27 U/L (14-36); Bilirubin,Total 0.6 mg/dl (0.2-1.3); Blood Urea Nitrogen 13 mg/dl (7-17); Calcium 8.9 mg/dl (8.4-10.2); Carbon Dioxide 27 mmol/L (22.0-30.0); Chloride 103 mmol/L (98-107); Cholesterol 229 mg/dl (140-200); Creatinine,Serum 0.80 mg/dl (0.52-1.04); Estimated Glomerular Filt Rate 72 ml/min (>60); GFR (African American) 87 ML/MIN (>60); Globulin 2.6 g/dL (1.3-3.2); Glucose 72 mg/dl (74-100); HDL Cholesterol 65 mg/dl (40-60); Potassium 4.8 mmoL/L (3.5-5.1); Sodium 139 mmol/L (136-145); Total Protein,Serum 6.6 g/dl (6.3-8.2); Triglycerides 61 mg/dl (30-150)
--- OUTSIDE RECORDS SUMMARY | 2025-07-21 10:44 | XMS_ITS | Patient Health Record ---
Author Organization [facility] Address [address] [place] [address] Care Team Providers Care Associate Professor Of English Name Role Phone MarybelKim davila Unavailable [phone] Reason For Referral No Information Problems Problem Type SNOMED Code ICD Code Onset Dates Problem Status W/U Status Risk Notes Problem Gynecological examination normal ([id number] ) Cervical smear, as part of routine gynecological examination (Z01.419) 02/20/20 17 Active confirmed Annual without abnormal findings Plan Of Treatment No Information Medical (General) History Medical History History ICD Code Yeast Infection Fibrocystic Breasts high cholesterol A Routine Surgical History Surgery Date(Month/Year) Tonsillectomy, C/S
== END 2025-07-20 23:59 ==
LOC: LAB.DROPOF 07-21 10:38
PROVIDERS: PCP Internal Medicine; Visit Provider Internal Medicine
DX: E78.5 Hyperlipidemia, unspecified (principal); K59.00 Constipation, unspecified
CPT/HCPCS: 80053; 80061; 85025